=== PATIENT | female | born 1990 | race Caucasian/White ===

== ENCOUNTER 2017-04-03 11:02 | Emergency (ER) | payer MEDICAID ==
[~2017-04-03] VITALS: Ht 160 cm; Wt 92.0 kg
[~2017-04-03 11:02] MED LIST: IBUP600 PO; METH5TAB PO; NAPR-576 PO; ONDA4 PO; PERI8.6T PO; PRENCAP6 PO; ZOFR4TAB3 PO
[2017-04-03 11:05] VITALS: BP 118/73; PULSE 87; RESP 18; TEMP 99.1; O2SAT 97
[2017-04-03] MEDS ORDERED: METH40TA PO (11:17)
--- NOTE | 2017-04-03 11:34 | PD ---
HPI Chief Complaint: Pain: Acute or Chronic Time Seen by Provider: 11:12 Travel History International Travel<30 days: No Contact w/Intl Traveler<30days: No Traveled to known affect area: No History of Present Illness HPI This 26-year-old female says that for the past month she isn't having periods where she feels lightheaded. The patient occasional pain with left side of her chest which is quite sharp sometimes a pinching type of sensation she gets left arm and the left side of the neck has no history of neck injury NERVE. 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 She is not an IV drug user she was just a pill user [facility] Past Medical History Anxiety: Yes Diminished Hearing: No Gastrointestinal Disorders: Yes Genitourinary: Yes Kidney Stones: Yes Immunizations Current: Yes Influenza Vaccination: No ?: Not LMP: 02/28/17 : 4 Para: 4 Miscarriage: 0 : 0 Ectopic : No Ovarian Cysts: No Dilation and Curettage (D&C): No Tubal Ligation: No Past Surgical History Surgical History: No Previous Surgery Section: No Hysterectomy: No Other Surgery: No Social History Alcohol Use: No Tobacco Use: Yes (/2 PPD) Substance Use: No (HX OF) Allergies-Medications (Allergen,Severity, Reaction): Coded Allergies: Penicillin (Verified Allergy, Severe, HIVES/RASH, 10/03/15) Reported Meds & Prescriptions Reported Meds & Active Scripts Active Reported Methadone (Methadone HCl) 40 Mg Tab 95 Mg PO DAILY Review of Systems General / Constitutional: No: Fever, Chills Eyes: No: Diploplia HENT: No: Headaches Cardiovascular: Positive: Chest Pain or Discomfort, No: Palpitations Respiratory: No: Shortness of Breath Gastrointestinal: No: Vomiting, Diarrhea Genitourinary: No: Urgency, Frequency Musculoskeletal: Positive: Myalgias Skin: No Rash Neurologic: No: Weakness Physical Exam Narrative GENERAL: Well-developed female SKIN: Focused skin assessment warm/dry. HEAD: Atraumatic. Normocephalic. EYES: Pupils equal and round. No scleral icterus. No injection or drainage. ENT: No nasal bleeding or discharge. Mucous membranes pink and moist. NECK: Trachea midline. No JVD. CARDIOVASCULAR: Regular rate and rhythm. No murmur appreciated. RESPIRATORY: No accessory muscle use. Clear to auscultation. Breath sounds equal bilaterally. GASTROINTESTINAL: Abdomen soft, non-tender, nondistended. Hepatic and splenic margins not palpable. MUSCULOSKELETAL: No obvious deformities. No clubbing. No cyanosis. No edema. NEUROLOGICAL: Awake and alert. No obvious cranial nerve deficits. Motor grossly within normal limits. Normal speech. PSYCHIATRIC: Appropriate mood and affect; insight and judgment normal. Data Data Last Documented VS Vital Signs Date Time Temp Pulse Resp B/P Pulse Ox O2 Delivery O2 Flow Rate FiO2 04/03/17 11:05 99.1 87 18 118/73 97 Orders Complete Blood Count With Diff (04/03/17 11:32) Basic Metabolic Panel (Bmp) (04/03/17 11:32) Troponin I (04/03/17 11:32) Labs Laboratory Tests Test 04/03/17 11:56 White Blood Count 5.7 TH/MM3 Red Blood Count 4.32 MIL/MM3 Hemoglobin 12.4 GM/DL Hematocrit 37.0 % Mean Corpuscular Volume 85.7 FL Mean Corpuscular Hemoglobin 28.6 PG Mean Corpuscular Hemoglobin 33.3 % Concent Red Cell Distribution Width 13.3 % Platelet Count 128 TH/MM3 Mean Platelet Volume 9.5 FL Neutrophils (%) (Auto) 54.1 % Lymphocytes (%) (Auto) 35.1 % Monocytes (%) (Auto) 7.0 % Eosinophils (%) (Auto) 2.9 % Basophils (%) (Auto) 0.9 % Neutrophils # (Auto) 3.0 TH/MM3 Lymphocytes # (Auto) 2.0 TH/MM3 Monocytes # (Auto) 0.4 TH/MM3 Eosinophils # (Auto) 0.2 TH/MM3 Basophils # (Auto) 0.1 TH/MM3 CBC Comment DIFF FINAL Differential Comment Sodium Level 141 MEQ/L Potassium Level 3.8 MEQ/L Chloride Level 106 MEQ/L Carbon Dioxide Level 26.6 MEQ/L Anion Gap 8 MEQ/L Blood Urea Nitrogen 6 MG/DL Creatinine 0.57 MG/DL Estimat Glomerular Filtration 127 ML/MIN Rate Random Glucose 117 MG/DL Calcium Level 8.0 MG/DL Troponin I LESS THAN 0.02 NG/ML MDM Medical Decision Making Medical Screen Exam Complete: Yes Emergency Medical Condition: Yes Medical Record Reviewed: Yes Differential Diagnosis Differential includes atypical chest pain, coronary artery disease, GERD, muscles Narrative Course EKG and troponin are normal. Impression is atypical chest pain. This pain is quite brief and I don't think concerning for coronary artery disease. She is stable for discharge Diagnosis Primary Impression: Atypical chest pain Disposition: 01 DISCHARGE HOME Condition: Stable Randall Holloway MD Apr 03, 2017 11:34
[2017-04-03 12:01] LABS: BASOPHIL # 0.1 TH/MM3 (0-0.2); BASOPHIL % 0.9 % (0.0-2.0); EOSINOPHIL # 0.2 TH/MM3 (0-0.4); EOSINOPHIL % 2.9 % (0.0-4.0); HEMO FLAGS DIFF FINAL; LYMPH % 35.1 % (9.0-44.0); MEAN CELL VOLUME 85.7 FL (80.0-100.0); MEAN CORPUSCULAR HEMOGLOBIN 28.6 PG (27.0-34.0); MEAN CORPUSCULAR HGB CONC 33.3 % (32.0-36.0); NEUT % 54.1 % (16.0-70.0); PLATELET COUNT 128 TH/MM3 (150-450); RED BLOOD COUNT 4.32 MIL/MM3 (4.00-5.30); RED CELL DISTRIBUTION WIDTH 13.3 % (11.6-17.2); WHITE BLOOD COUNT 5.7 TH/MM3 (4.0-11.0)
[2017-04-03 12:15] LABS: CHLORIDE 106 MEQ/L (98-107); POTASSIUM 3.8 MEQ/L (3.5-5.1); SODIUM (NA) 141 MEQ/L (136-145)
[2017-04-03 12:18] LABS: ANION GAP 8 MEQ/L (5-15); BICARBONATE 26.6 MEQ/L (21.0-32.0); BLOOD UREA NITROGEN 6 MG/DL (7-18)
[2017-04-03 12:21] LABS: GLOMERULAR FILTRATION RATE 127 ML/MIN (>89)
[2017-04-03 13:29] VITALS: BP 118/71
--- NOTE | 2017-04-04 18:01 | EKG ---
Date Performed: 04/03/2017 Time Performed: 11:03:16 PTAGE: 26 years EKG: Sinus tachycardia rSr'(V1) - probable normal variant Borderline ECG PREVIOUS TRACING : 01/22/2016 22.55 Compared to the previous tracing rate faster DOCTOR: Tawanna Alexandre Interpretating Date/Time 04/04/2017 18:00:04
== END 2017-04-03 13:30 | disposition home or self-care (01) ==
LOC: PHED 11:02
DX: R07.89 Other chest pain (principal); R94.31 Abnormal electrocardiogram [ECG] [EKG]; F17.210 Nicotine dependence, cigarettes, uncomplicated; Z88.0 Allergy status to penicillin
CPT/HCPCS: 80048; 84484; 85025; 93005; 99283